=== PATIENT | male | born 1965 | race Caucasian/White ===

== ENCOUNTER 2020-10-12 16:14 | Inpatient (IN) | payer OTHER ==
[~2020-10-12] VITALS: Ht 182.9 cm; Wt 81.6 kg
[2020-10-12 16:30] VITALS: BP 170/116
[2020-10-12] MEDS ORDERED: CARVEDILOL12.5 MG PO (16:34)
[2020-10-12] MEDS ORDERED: LASIX 20 MG TAB20 MG PO (16:34)
[2020-10-12] MEDS ORDERED: HYDRALAZINE 2525 MG PO (16:35)
[2020-10-12] MEDS ORDERED: ASA81BEC PO (16:35)
[2020-10-12 17:12] LABS: HEMATOCRIT 44.6 % (42.0-52.0); HEMOGLOBIN 14.7 gm/dL (14.0-18.0); MCH 30.9 pg (26.0-34.0); MCHC 32.9 g/dL (28.0-37.0); RBC 4.74 mil/uL (4.50-6.00); RDW 16.1 % (10.5-14.5); WBC 16.6 thou/uL (4.0-11.0)
[2020-10-12 17:24] LABS: CALCIUM 9.6 mg/dL (8.5-10.1); CREATININE 1.5 mg/dL (0.7-1.3); POTASSIUM 4.5 mmol/L (3.5-5.1)
[2020-10-12 17:34] LABS: ALBUMIN 4.3 g/dL (3.4-5.0); TOTAL BILIRUBIN 1.3 mg/dL (0.2-1.0); TOTAL PROTEIN 7.8 g/dL (6.4-8.2); TROPONIN-I 0.1 ng/mL (<0.06)
[2020-10-12 19:18] VITALS: BP 161/101
[2020-10-12 19:44] VITALS: BP 165/111
[2020-10-12 20:06] VITALS: BP 133/94
[2020-10-12 20:38] LABS: APTT 28.8 Seconds (24.5-32.8); PROTIME 11.2 Seconds (9.3-11.4)
[2020-10-12 21:05] LABS: CHOLESTEROL 251 mg/dL (<200); HDL CHOLESTEROL 61 mg/dL (>40); LDL CHOLESTEROL 174 mg/dL (<100); TC:HDL 4.1 Ratio (Not establshd); TRIGLYCERIDE 83 mg/dL (<150); TROPONIN-I 0.14 ng/mL (<0.06); VLDL 17 mg/dL (<40)
[2020-10-13 00:17] VITALS: BP 120/82
--- NOTE | 2020-10-13 03:50 | NUR ---
Pt was an ER admit who presented with chest pain. Upon arrival to the floor, pt continue to verbalize chest pain. Morphine administered in the ER. Heparin drip initiated. Pt is stable with heparin. Admission assessment and education completed. Scheduled meds administered to pt. Pt expresses relief with chest pain. No acute events overnight. Consult for cardiology to be called in the morning. Continue to monitor pt, no further needs at this time.
[2020-10-13 04:02] VITALS: BP 125/75
[2020-10-13 05:18] LABS: CREATININE 1.7 mg/dL (0.7-1.3); POTASSIUM 3.9 mmol/L (3.5-5.1); TROPONIN-I 0.1 ng/mL (<0.06)
--- NOTE | 2020-10-13 07:12 | EKG ---
[place] [address] [facility] [address] ELECTROCARDIOGRAM REPORT Name: TERE URIBE Room #: 206-P ADM IN M.R.#: [id number] Admission: 10/12/20 Attend Phys: Shan Russo Discharge: Date of : 67 Report #: [id number] [facility] ED Test Date: 2020-10-12 Test Time: 16:24:28 Pat Name: TERE URIBE Department: Room: 206 Gender: M Neonatal Intensive Care Unit Nurse: JCHAIMAUDE : 1965 Requested By: Lynne Barba Order Number: [id number] MD: Bernard Arriaga Measurements Intervals [place] Rate: 113 P: 60 WI: 152 QRS: 61 QRSD: 108 T: -87 QT: 352 QTc: 483 Interpretive Statements Sinus tachycardia Probable left atrial enlargement Abnormal R-wave progression, late transition Left ventricular hypertrophy Borderline T abnormalities, inferior leads Borderline prolonged QT interval No previous ECG available for comparison Electronically Signed On 10-13-2020 7:11:50 FUNERAL HOME MANAGER by Bernard Arriaga [email or web address] <ELECTRONICALLY SIGNED> By: Bernard Arriaga MD, [facility] 10/13/20 0711 1624 1624 Bernard Arriaga MD, FAC /EPI
[2020-10-13 08:00] VITALS: BP 130/97
--- NOTE | 2020-10-13 08:56 | 2DMMODE ---
[facility] [place] [address] 2 D/M-MODE ECHOCARDIOGRAM Name: TERE URIBE Room #: 206-P ADM IN M.R.#: [id number] Admission: 10/12/20 Attend Phys: Shan Russo Discharge: Date of : 67 Report #: [id number] THIS REPORT FOR: cc: MAYRA - Maral family physician/PCP MAYRA - No family physician/PCP Bernard Arriaga MD [facility] ~ APPROVED REPORT Study performed: 10/13/2020 07:15:09 EXAM: Comprehensive 2D, Doppler, and color-flow Echocardiogram Patient Location: Bedside Room #: 206 Status: routine BSA: 2.04 HR: 85 bpm BP: 168/102 mmHg Rhythm: NSR Other Information Study Quality: Good Indications NSTEMI. Mitral valve repair, HTN, ETOH abuse. 2D Dimensions RVDd: 46.03 mm IVSd: 13.01 (7-11mm) LVOT Diam: 20.80 (18-24mm) LVDd: 72.68 mm PWd: 10.87 (7-11mm) Ascending Ao: 34.33 (22-36mm) LVDs: 70.23 (25-40mm) Left Atrium: 58.91 (27-40mm) Aortic Root: 39.13 mm Volumes Left Atrial Volume (Systole) Single Plane 4CH: 146.86 mL Single Plane 2CH: 157.34 mL LA ESV Index: 80.00 mL/m2 Aortic Valve AoV Peak Daniel.: 1.09 m/s AO Peak Gr.: 4.80 mmHg LVOT Max P.10 mmHg LVOT Max V: 0.72 m/s [facility] [address] [place] [address] 2 D/M-MODE ECHOCARDIOGRAM Name: TERE URIBE Room #: 206-P [facility] IN ..#: [id number] Admission: 10/12/20 Attend Phys: Shan Bolton Discharge: Date of : 67 Report #: [id number] Vmax: 2.24 cm2 Mitral Valve E/A Ratio: 1.5 MV Decel. Time: 217.14 ms MV E Max Daniel.: 1.47 m/s MV A Daniel.: 0.99 m/s MV PHT: 62.97 ms MVA (PHT): 3.55 cm2 IVRT: 72.66 ms Pulmonary Valve PV Peak Daniel.: 0.61 m/s PV Peak Gr.: 1.49 mmHg Pulmonary Vein P Vein S: 0.37 m/s P Vein D: 0.47 m/s P Vein S/D Ratio: 0.79 Tricuspid Valve TR Peak Daniel.: 3.29 m/s RAP Estimate: 5.00 mmHg TR Peak Gr.: 43.36 mmHg PA Pressure: 48.00 mmHg Left Ventricle Left ventricle is severely dilated. There is global hypokinesis of the left ventricle. There is normal left ventricular wall thickness. Left ventricular systolic function is severely decreased. LVEF is 20-25%. Moderate diastolic dysfunction is present. Right Ventricle Right ventricle is mildly dilated. Right ventricle is moderately hypokinetic. Atria Left atrium is severely dilated. Right atrium is mildly dilated. Aortic Valve Aortic valve leaflets are mildly thickened. Trace aortic regurgitation. There is no aortic valvular stenosis. Mitral Valve History of mitral valve repair. Mean gradient through the valve is 4mmHg. Severe mitral regurgitation. No evidence of mitral valve stenosis. [facility] [place] [place] [address] 2 D/M-MODE ECHOCARDIOGRAM Name: TERE URIBE Room #: 206-P [facility] IN .R.#: [id number] Admission: 10/12/20 Attend Phys: Shan Bolton Discharge: Date of : 67 Report #: [id number] Tricuspid Valve The tricuspid valve is normal in structure. Mild tricuspid regurgitation. Estimated PAP is 45-50mmHg. Pulmonic Valve The pulmonary valve is normal in structure. Mild pulmonic regurgitation. Great Vessels Aortic root is borderline dilated. The ascending aorta is normal in size. IVC is normal in size and collapses >50% with inspiration. Pericardium There is no pericardial effusion. <Conclusion> Left ventricle severely dilated, normal wall thickness Severe global hypokinesis ejection fraction 20-25% Right ventricle moderately dilated/hypokinetic Left atrium is severely dilated Right atrium moderately dilated Trileaflet aortic valve with minimal calcification Moderate mitral annular calcification, the posterior leaflet appears to be fixed, mean gradient 4 mmHg Severe/central mitral valve insufficiency Mild tricuspid valve insufficiency Pulmonary artery systolic pressure estimated 45 mmHg Aortic root by borderline dilated No pericardial effusion <ELECTRONICALLY SIGNED> By: Bernard Arriaga MD, FACC 10/13/2056 5 5 Bernard Arriaga MD, FACC /INF
--- NOTE | 2020-10-13 12:02 | NUR ---
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
[2020-10-13 12:38] LABS: BE(vivo) 1.4 mmol/L (-2 to +3); PCO2 VENOUS 46.4 mmHg (41.0-51.0); PO2 VENOUS 31.8 mmHg (35.0-45.0)
[2020-10-13 12:39] LABS: BE(vivo) -1.5 mmol/L (-2 to +3); HCO3 23.8 mmol/L (22.0-26.0); PCO2 42.4 mmHg (35.0-45.0); PO2 86.3 mmHg (80.0-100.0); pH 7.367 (7.360-7.450); sO2 96.3 % (92.0-98.0)
--- NOTE | 2020-10-13 13:20 | NUR ---
PT HAS RETURNED FROM FINAL INSPECTOR. PT DENIES PAIN AT THIS TIME. PT INSTRUCTED ON BEDREST AND DIET.
--- NOTE | 2020-10-13 14:33 | CATHLAB ---
[facility] [place] [address] INVASIVE PROCEDURE REPORT Name: TERE URIBE Room #: 206-P ADM IN M.R.#: [id number] Admission: 10/12/20 Attend Phys: Shan Rsuso Discharge: Date of : 67 Report #: [id number] THIS REPORT FOR: cc: FAM - No family physician/PCP FAM - No family physician/PCP Keny Nix MD ~ APPROVED REPORT Study performed: 10/13/2020 11:44:04 Patient Details Patient Status: In-Patient Room #: 206 The patient is a 55 year-old male Event Personnel Keny Nix Distribution Operation Supervisor, Priti Vines RTR Monitor, Janene Veloz RN RN, Manan Iqbal RTR Scrub Procedures Performed Art Access - R femoral artery* Renaldo Access - R femoral vein Right and Left Heart Cath w/or w/o Coronarie [id number] [facility] Hemostasis with Manual pressure Indication CHF Current Status: , Non-STEMI , Dyspnea, Chest pain Risk Factors Hypercholesterolemia, Hypertension, Tobacco History () Previous Procedures/Diagnoses Previous Valve Surgery, Previous CHF Procedure Narrative The Right Groin^ was infiltrated with 1% Lidocaine subcutaneous anesthesia. A Right Heart Catheterization was performed with a 7 Fr. [place]-Kathy catheter and pressure were recorded. A [employer]NACLE 4FR Sheath #[id number] sheath was inserted into the RFA^. Coronary angiography was performed using coronary diagnostic catheters. The right coronary system was accessed and visualized with a JR4 catheter. The left coronary system was accessed and visualized with a JL4 catheter. The left ventricle was accessed and visualized with a JR4 catheter. Hemostasis was obtained with manual pressure following sheath removal without any complications. The patient tolerated the procedure well and there were no complications associated with the procedure. There [facility] [address] [place] [address] INVASIVE PROCEDURE REPORT Name: JOJOTERE Frances Room #: 206-P [facility] IN ..#: [id number] Admission: 10/12/20 Attend Phys: Shan Bolton Discharge: Date of : 67 Report #: [id number] was no hematoma. Intraoperative Conscious Sedation Fentanyl 25 mcg No versed was used for sedation. Fluoro Time: 3.50 minutes Dose: DAP 5058.30 cGycm2 594 mGy Contrast Type and Amount: Visipaque 30 ml Coronary Angiography The patient's coronary anatomy is left dominant. Diagnostic Cath Left Main The left main artery is a large-caliber vessel, patent with no flow-limiting lesions. LAD The LAD is a moderate to large caliber vessel, traverses the anterior wall and wraps around the apex. There is mild disease in the proximal and mid segments, less than 20%. Diagonal 1 This is a moderate-sized caliber vessel, divides into 2 branches. There are no flow-limiting lesions. Circumflex The left circumflex artery is a dominant vessel with mild plaquing in the proximal segment, 30%. OM1 This is a moderate-sized caliber vessel, patent with no flow-limiting lesions. OM2 This is a moderate-sized caliber vessel, patent with no flow-limiting lesions. OM3 This is a moderate-sized caliber vessel, patent with no flow-limiting lesions. L PDA This is a moderate-sized caliber vessel with mild disease proximally, 30%. Right Coronary This is a small, nondominant vessel. Left Ventriculography Left Ventriculography was not performed. Ejection Fraction was 20% based off patient's Echocardiogram. An LVEDP was measured and there is no gradient across the outflow tract. Hemodynamics The right atrial mean pressure is 14 mmHg. The right ventricular pressure is 42/7 mmHg. The pulmonary artery pressure is 52/29 mmHg with a mean of 38 mmHg. The aortic pressure is 107/63 mmHg with a mean of 85 mmHg. The left ventricular pressure is 104/24 mmHg with a mean of mmHg. The left ventricular end diastolic pressure is 31 mmHg. PaO2 saturation is 59.40 %. Arterial saturation is 94.10 %. The cardiac output using the Monica method is 3.45 L/min. The cardiac index [facility] [address] [place] [address] INVASIVE PROCEDURE REPORT Name: JOJOTERE Frances Room #: 206-P [facility] IN M.R.#: [id number] Admission: 10/12/20 Attend Phys: Shan Bolton Discharge: Date of : 67 Report #: [id number] using the Monica method is 1.69 L/min/m2. Conclusion 1. Severe, nonischemic cardiomyopathy. 2. Mild, nonobstructive coronary artery disease. 3. Severe mitral regurgitation. 4. Left dominant system. 5. Recommend guideline directed medical therapy and an evaluation for mitral valve clip. <ELECTRONICALLY SIGNED> By: Keny Nix MD 10/13/20 1433 1433 1433 Keny Nix MD /INF
--- NOTE | 2020-10-13 14:57 | NUR ---
RECEIVED PT FROM IMAGING CENTER MANAGER AT 1340. PTS ADMISSION AND ASSESSMENT COMPLETED. HIGH FALL RISK PRECAUTIONS IN PLACE. VSS. WILL CONTINUE TO MONITOR.
--- NOTE | 2020-10-13 15:25 | NUR ---
PT STATES HE WANTS TO LEAVE AMA. PT WAS NOTIFIED OF THE RISK OF LEAVING AND HIGHLY ENCOURAGED TO STAY DUE TO CARDIAC CATH THIS AFTERNOON. AT 1435, DR OAKES AND RITA RAMESH WITH CARDIOLOGY WAS NOTIFIED. THEY ALSO AGREE ITS HIGHLY ENCOURAGED HE STAYS HOWEVER IF HE WANTS TO LEAVE HAVE HIM SIGN THE CORRECT AMA FORM. WILL CONTINUE TO MONITOR PT UNTIL DISMISSAL.
--- NOTE | 2020-10-13 16:29 | NUR ---
PTS SISTER ARRIVED AT HOSPITAL. AFTER DISCUSSING PLAN OF CARE WITH SISTER. PT DECIDED TO STAY.
[2020-10-13 17:00] VITALS: BP 115/83
[2020-10-13 19:17] VITALS: BP 104/62
[2020-10-13 23:20] VITALS: BP 129/85
[2020-10-14 03:30] LABS: MCH 30.3 pg (26.0-34.0); MCHC 32.5 g/dL (28.0-37.0); MCV 93.5 fL (80.0-100.0); RBC 4.28 mil/uL (4.50-6.00); RDW 15.8 % (10.5-14.5); WBC 11.6 thou/uL (4.0-11.0)
--- NOTE | 2020-10-14 03:38 | NUR ---
Assumed pt care at 1900. Pt is alert and oriented No sign of distress noted in pt. Assessment completed and documented. Groin site is clean. No sign of bruising or hematoma. Scheduled meds administered to pt. Pt verbalized pain to groin site, pain med administered accrodingly. No acute events overnight. Pending discharge. Continue to monitor. No further needs at this time.
[2020-10-14 03:58] LABS: ALBUMIN 3.4 g/dL (3.4-5.0); CALCIUM 8.5 mg/dL (8.5-10.1); CREATININE 1.7 mg/dL (0.7-1.3); PHOSPHORUS 2.8 mg/dL (2.5-4.9); POTASSIUM 3.5 mmol/L (3.5-5.1); TROPONIN-I 0.06 ng/mL (<0.06)
[2020-10-14 04:06] VITALS: BP 137/93
[2020-10-14 07:44] VITALS: BP 125/80
[2020-10-14 09:14] VITALS: BP 125/80
--- NOTE | 2020-10-14 09:22 | NUR ---
ASSUMED PT CARE AT 0700, PT STATES HE IS VERY DISPLEASED WITH THE SERVICE IN HOSPITAL. PT STATES THE FOOD IS TERRIBLE AND ALL THEY HAVE IS CHEAP NANI. PT STATES WHAT [facility] OF HOSPITAL RUNS OF CHEAP NANI.
--- NOTE | 2020-10-14 10:02 | NUR ---
PT RIPPED IV OUT AND DIRECTOR OF MARKETING OPERATIONS OFF. PT STATES HE IS LEAVING. PT SIGNED AMA PAPERWORK, AND LEFT WITH BOTTLE FEEDER ESCORT.
== END 2020-10-14 10:09 | disposition left against medical advice (07) | DRG 280 ==
LOC: ER 16:14 → 2N 19:02 → EROBS 19:02 → 2N 19:44
PROVIDERS: Nurse Practitioner; Nurse Practitioner Family; ADMIT Hospitalist; ATTEND Hospitalist
PROC: 4A023N8 Measurement of Cardiac Sampling and Pressure, Bilateral, Percutaneous Approach (ICD-10-PCS; principal; 2020-10-13)
PROC: B211YZZ Fluoroscopy of Multiple Coronary Arteries using Other Contrast (ICD-10-PCS; principal; 2020-10-13)
DX: I21.4 Non-ST elevation (NSTEMI) myocardial infarction (principal); I50.23 Acute on chronic systolic (congestive) heart failure; N17.9 Acute kidney failure, unspecified; I42.8 Other cardiomyopathies; I25.10 Atherosclerotic heart disease of native coronary artery without angina pectoris; I34.0 Nonrheumatic mitral (valve) insufficiency; E78.5 Hyperlipidemia, unspecified; I11.0 Hypertensive heart disease with heart failure; Z53.21 Procedure and treatment not carried out due to patient leaving prior to being seen by health care provider; Z79.82 Long term (current) use of aspirin; Z79.899 Other long term (current) drug therapy; Z72.89 Other problems related to lifestyle
CPT/HCPCS: 10081

== ENCOUNTER → 2020-11-22 | Outpatient (CLI) | payer OTHER ==
[~2020-11-22] MED LIST: ASA81BEC PO; CARVEDILOL12.5 MG PO; HYDRALAZINE 2525 MG PO; LASIX 20 MG TAB20 MG PO
== END ==
LOC: SJCVC 13:07
PROVIDERS: ATTEND Internal Medicine Cardiovascular Disease
DX: R94.31 Abnormal electrocardiogram [ECG] [EKG] (principal); I49.1 Atrial premature depolarization; I42.9 Cardiomyopathy, unspecified; I13.0 Hypertensive heart and chronic kidney disease with heart failure and stage 1 through stage 4 chronic kidney disease, or unspecified chronic kidney disease; I50.22 Chronic systolic (congestive) heart failure; N18.9 Chronic kidney disease, unspecified; N17.9 Acute kidney failure, unspecified; I34.0 Nonrheumatic mitral (valve) insufficiency; I25.10 Atherosclerotic heart disease of native coronary artery without angina pectoris; E78.00 Pure hypercholesterolemia, unspecified; E78.5 Hyperlipidemia, unspecified; Z98.890 Other specified postprocedural states; Z79.82 Long term (current) use of aspirin; Z79.899 Other long term (current) drug therapy